=== PATIENT | female | born 1985 | race Caucasian/White ===

== ENCOUNTER 2024-10-27 05:36 | Emergency (ER) | payer MEDICAID, OTHER ==
[~2024-10-27] VITALS: Ht 154.9 cm; Wt 79.6 kg
--- NOTE | 2024-10-27 05:50 | ELECTROCARDIOGRAPH REPORT ---
[facility] Test Date: 2024-10-27 Test Time: 05:48:32 Pat Name: JULIAN VALDES Department: EMERGENCY ROOM Room: Gender: F [employer] Supervisor: LIZETH : 1985 Requested By: SANDRA SOW Order Number: [id number] Reading MD: Measurements Intervals [place] Rate: 59 P: 33 MD: 142 QRS: 58 QRSD: 87 T: 19 QT: 401 QTc: 398 Interpretive Statements Sinus bradycardia Low voltage, precordial leads Borderline T abnormalities, anterior leads Please click the below link to view image of tracing.
[2024-10-27 07:07] LABS: URINE HCG NEGATIVE (NEG)
[2024-10-27 07:08] LABS: LEUKOCYTE ESTERASE ,URINE NEGATIVE (Neg); NITRITES, URINE NEGATIVE (Neg); OCCULT BLOOD,URINE MODERATE (Neg)
[2024-10-27 07:14] LABS: MEAN PLATELET VOLUME 8.3 FL (7.4-10.4); RED CELL DISTRIBUTION WIDTH 12.7 % (11.5-14.5)
[2024-10-27 07:15] LABS: UA COLLECTION TYPE VOIDED
--- NOTE | 2024-10-27 07:15 | Physician Documentation ---
History of Present Illness General Chief Complaint: Abdominal Pain Stated Complaint: STOMACH ISSUES Time Seen by MD: 07:09 Primary Medical Doctor: PATIENT DENIES PMD Mode of Arrival: POV History of Present Illness Initial Comments 39-year-old female complains of intermittent abdominal pain over last several months. The patient states she has a episodic pain that usually last several hours. Patient states she developed abdominal pain last night at 11:00 p.m.. She states her pain usually occurs after she eats greasy foods. Patient states her pain was 7/10 and located in the right upper quadrant radiates to her back. The patient denies any fevers or chills. Patient states she has felt bloated. Patient states she vomited several times and she still has slight nausea she states her pain has improving. There was symptoms are moderate and improving. Medication Reconciliation Allergies: Coded Allergies: acetaminophen (Verified Allergy, Unknown, 10/27/24) hydrocodone bit (Verified Allergy, Unknown, 10/27/24) Scheduled PRN ONDANSETRON ODT 4mg tablet (Ondansetron Odt), 1 TABLET PO Q6H PRN for nausea/vomiting Review of Systems All Other Systems at this time: Reviewed and Negative Physical Exam Physical Exam Vital Signs: Temperature: 98.3, Source: Oral, Heart Rate: 58, Respiratory Rate: 16, BP: 142/79, Pulse Oximetry: 100, Weight: 79.600 Oxygen Flow Rate: 0 Physical Exam VITALS: Reviewed and as above. GENERAL: Alert, no apparent distress. HEENT: Normocephalic, atraumatic, PERRL, EOMI, dry mucosa, no erythema RESPIRATORY: Lungs clear, normal breath sounds, no respiratory distress. CHEST: No accessory muscle use, no retractions CV: Regular rate, rhythm, no edema, no murmur, No: JVD GI: Slight right upper abdominal tenderness, bowels sounds present, no rebound, guarding, or rigidity BACK: No CVA tenderness, or swelling MUSCULOSKELETAL: No deformities, no edema SKIN: Warm and dry, no rash NEURO: Oriented x4, No motor or sensory deficit PSYCH: Normal mood and affect, no agitation Progress Results/Orders Results/Orders Orders - OHLFSGOLDEN MD Ultrasound Of Abdomen (10/27/24 07:36) Completed Orders - OHGOLDEN MICHELLE MD Ultrasound Of Abdomen (10/27/24 07:36) Ondansetron Inj. (Zofran 4mg/2ml Vial) (10/27/24 08:25) Normal Saline 1000ml (0.9% Sodium Chlori (10/27/24 08:25) Ketorolac Trometh 15mg/Ml Vial (Toradol (10/27/24 08:25) Vital Signs 10/27/24 10/27/24 10/27/24 10/27/24 05:38 06:38 06:45 08:25 Temp 98.3 98.3 98.3 Pulse 60 58 56 Resp 18 16 16 B/P (MAP) 155/95 142/79 (100) 139/86 (103) Pulse Ox 100 100 99 O2 Flow Rate 0 0 10/27/24 10/27/24 08:35 09:04 Temp 98.3 Pulse 50 Resp 18 17 B/P (MAP) 133/78 Pulse Ox 100 Laboratory Tests Test 10/27/24 06:56 10/27/24 07:06 Urine Specimen Description Voided Urine Color Yellow Urine Clarity Clear Urine pH 7.0 Urine Specific [place] 1.020 Urine Protein Trace Urine Glucose (UA) Negative Urine Ketones Negative Urine Occult Blood Moderate H Urine Nitrite Negative Urine Bilirubin Negative Urine Urobilinogen 0.2 Urine Leukocyte Esterase Negative Urine RBC 10-20 Urine WBC None seen Urine Squamous Epithelial Cells Few Urine Amorphous Phosphates 1+ Urine Bacteria None seen Urine Mucus Few Urine Culture Indicated Not ind Volume Urine Centrifuged 8 ml Urine HCG, Qualitative Negative Urine Comment Low volume White Blood Count 8.0 Red Blood Count 5.02 Hemoglobin 15.5 Hematocrit 45.0 Mean Corpuscular Volume 89.7 Mean Corpuscular Hemoglobin 30.9 Mean Corpuscular Hemoglobin Concent 34.5 Red Cell Distribution Width 12.7 Platelet Count 248 Mean Platelet Volume 8.3 Neutrophils (%) (Auto) 87.1 H Lymphocytes (%) (Auto) 9.5 L Monocytes (%) (Auto) 2.6 Eosinophils (%) (Auto) 0.2 Basophils (%) (Auto) 0.6 Neutrophils # (Auto) 7.0 Lymphocytes # (Auto) 0.8 L Monocytes # (Auto) 0.2 Eosinophils # (Auto) 0.0 Basophils # (Auto) 0.0 CBC Comment Sodium Level 136 Potassium Level 3.7 Chloride Level 99 Carbon Dioxide Level 27.6 Anion Gap 9 Blood Urea Nitrogen 9 Creatinine 0.79 Estimated GFR/1.73 m2 81 BUN/Creatinine Ratio 11.4 Glucose Level 121 H Calcium Level 8.8 Total Bilirubin 0.3 Aspartate Amino Transf (AST/SGOT) 13 Alanine Aminotransferase (ALT/SGPT) 24 Alkaline Phosphatase 122 H Total Protein 8.8 H Albumin 3.9 Globulin 4.9 H Albumin/Globulin Ratio 0.8 L Lipase 24 Chemistry Comments EKG/XRAY/CT/US/VASC/MRI Ultrasound : Impression Patient: JULIAN VALDES Medical Record: [id number] [facility] : 1985, Age: 39 Sex: Female Location: ER Patient Status: [facility] ER Service Date/Time: 10/27/24735 Ordering Physician: GOLDEN ALVARADO MD Exam: ULTRASOUND OF ABDOMEN Technique: Real-time ultrasound imaging of the abdomen was performed with grayscale and color Doppler. Indication: ruq pain r/o biliary colic Comparison: None Findings: Liver measures 18 cm. It is unremarkable in echogenicity and echotexture without focal mass. Portal vein is normal in caliber and demonstrates normal hep atopetal flow. Gallbladder demonstrates cholelithiasis. Hydropic/Distended gallbladder. There is no pericholecystic fluid. The wall thickness is 4 mm. The common bile duct measures 3 mm. No intrahepatic biliary ductal dilatation. The right kidney measures 10 cm. There is no hydronephrosis or sonographic evidence of nephrolithiasis. The visualized portion of the pancreas is unremarkable. The visualized portion of the IVC is unremarkable. Impression: Cholelithiasis, hydropic/Distended gallbladder. Gallbladder wall thickening to 4 mm. Recommend HIDA scan to exclude cholecystitis. Echogenic liver which can be seen with hepatic steatosis, cirrhosis. Hepatomegaly Electronically Signed by:TED HAMMER MD Date & Time: 10/27/24842 Dictated by: TED HAMMER MD Dictation date and time: 10/27/24842 Primary Care Provider: NO PRIMARY CARE PROVIDER cc: GOLDEN ALVARADO MD ~ Medical Decision Making Findings 39-year-old female presents with a intermittent abdominal pain which is now improving. Patient states the pain is worse with greasy food. She denies any fevers or chills she did have some nausea and vomiting. The patient was found to have multiple small while gallstones on ultrasound she does have some wall thickening there was no pericholecystic fluid in her common bile duct is normal- appearing her imaging was reviewed by myself. Prior hospitalizations have been reviewed labs were reviewed her pulse oximetry was interpreted as normal and adequate the patient was offered admission for possible cholecystectomy the patient requests that she be followed up as an outpatient is her pain is improving. They patient has been advised if she develops worsening where she develops fusion chills that she should return. The patient will be discharged home Departure Disposition: HOME / SELF CARE / HOMELESS Impression: Primary Impression: Cholelithiasis without obstruction Qualified Codes: K80.20 - Calculus of gallbladder without cholecystitis without obstruction Discharge Instructions: Cholelithiasis Additional Instructions: Follow up with Dr. Gonzalez, use ibuprofen for pain and Zofran for nausea. Return for significant worsening of her symptoms or if you develop fevers. Referrals: NO PRIMARY CARE PROVIDER (PCP) OPAL GONZALEZ MD Prescriptions ONDANSETRON ODT 4mg tablet (ONDANSETRON ODT) 4 Mg Tab.rapdis 1 TABLET PO Q6H PRN for nausea/vomiting, #12 TABLET Prov: GOLDEN ALVARADO MD 10/27/24 Signature Scribe Signature: no scribe Attestation: The note accurately reflects work and decisions made by me.Golden Alvarado MD 10/29/24 01:06 GOLDEN ALVARADO MD Oct 27, 2024 07:15
[2024-10-27 07:16] LABS: AMORPHOUS PHOSPHATES 1+; MUCUS STRANDS FEW /LPF (Neg); SQUAMOUS EPITHELIAL CELL,UR FEW /LPF (FEW)
[2024-10-27 07:29] LABS: CREATININE 0.79 MG/DL (0.40-0.90); TOTAL CARBON DIOXIDE 27.6 MMOL/L (24-32); eCRCL 71 ML/MIN; eGFR 81 ML/MIN
[2024-10-27] MEDS: ondansetron/PF 4mg/2ml inj IV ONE (08:34)
[2024-10-27] MEDS: normal saline 1000ML IV soln IVB ONE (08:35)
[2024-10-27] MEDS: ketorolac trometh 15mg/ml vial 15 MG/ML ML IV ONE (08:35)
--- NOTE | 2024-10-27 08:42 | RADIOLOGY REPORT ---
Technique: Real-time ultrasound imaging of the abdomen was performed with grayscale and color Doppler . Indication: ruq pain r/o biliary colic Comparison: None Findings: Liver measures 18 cm. It is unremarkable in echogenicity and echotexture without focal mass. Portal vein is normal in caliber and demonstrates normal hepatopetal flow. Gallbladder demonstrates cholelithiasis. Hydropic/Distended gallbladder. There is no pericholecystic fluid. The wall thickness is 4 mm. The common bile duct measures 3 mm. No intrahepatic biliary ductal dilatation. The right kidney measures 10 cm. There is no hydronephrosis or sonographic evidence of nephrolithiasi s. The visualized portion of the pancreas is unremarkable. The visualized portion of the IVC is unremarkable. Impression: Cholelithiasis, hydropic/Distended gallbladder. Gallbladder wall thickening to 4 mm. Recommend HIDA scan to exclude cholecystitis. Echogenic liver which can be seen with hepatic steatosis, cirrhosis. Hepatomegaly
[2024-10-27] MEDS ORDERED: ONDA-243 PO (08:58)
[2024-10-27 09:04] VITALS: BP 133/78; PULSE 50; RESP 17; TEMP 98.3; O2SAT 100
== END 2024-10-27 09:10 | disposition home or self-care (01) ==
LOC: ER 05:37
DX: K80.20 Calculus of gallbladder without cholecystitis without obstruction (principal); Z88.8 Allergy status to other drugs, medicaments and biological substances
CPT/HCPCS: 36415; 76700; 80053; 81001; 81025; 83690; 85025; 93005; 96361; 96374; 96375; 99285; J1885; J2405; J7030